=== PATIENT | male | born 1995 | race Caucasian/White ===

== ENCOUNTER 2017-07-07 14:41 | Emergency (ER) | payer MEDICAID ==
[2017-07-07 15:15] VITALS: RESP 16; TEMP 98.2
[2017-07-07 15:31] LABS: % IMMATURE GRANULYOCYTES 0.2 % (0.0-1.1); ABSOLUTE IMMATURE GRANULOCYTES 0.01 10^3/uL (0.00-0.10); ADD DIFF? NO; ADD MORPH? NO; ADD SCAN? NO; ATYPICAL LYMPHOCYTE FLAG 20 (0-99); FRAGMENT RBC FLAG 0 (0-99); HEMATOCRIT 43.9 % (40.0-51.0); HEMOGLOBIN 15.4 g/dL (13.7-17.5); LEFT SHIFT FLG 0 (0-99); LIPEMIA HEMOLYSIS FLAG 90 (0-99); MEAN CELL HEMOGLOBIN 30.6 pg (27.9-34.1); MEAN CELL HEMOGLOBIN CONCENTR. 35.1 g/dL (32.4-36.7); MEAN CELL VOLUME 87.3 fL (81.5-99.8); MEAN PLATELET VOLUME 8.9 fL (8.7-11.7); PLATELET CLUMPS FLAG 0 (0-99); PLATELET COUNT 249 10^3/uL (150-400); RED BLOOD CELL COUNT 5.03 10^6/uL (4.40-6.38); RED CELL DISTRIBUTION WIDTH 11.9 % (11.5-15.2)
[2017-07-07 15:51] LABS: ANION GAP 12 mEq/L (8-16); CALCIUM 9.6 mg/dL (8.5-10.4); CARBON DIOXIDE 24 mEq/l (22-31); CHLORIDE 102 mEq/L (97-110); CREATININE 0.9 mg/dL (0.7-1.3); ETHANOL SERUM < 10 mg/dL (0-10); GLOMERULAR FILTRATION RATE > 60; GLUCOSE 97 mg/dL (70-100); POTASSIUM 4.2 mEq/L (3.5-5.2); SODIUM 138 mEq/L (134-144)
--- NOTE | 2017-07-07 16:59 | EDPHY ---
H & P Time Seen by Provider: 07/07/17 15:17 HPI/ROS: CHIEF COMPLAINT: Psychosis and mental health hold HISTORY OF PRESENT ILLNESS: Patient was brought in on a mental health hold. Apparently his friends called his mother to come to the walk-in clinic but him on a hold. He thinks that the [email or web address] was reading his mind and has both violent thoughts and other paranoid delusions. The patient here just tells me that he "wants to get the fuck out of [place]" because "they will treat us like slaves." REVIEW OF SYSTEMS: Eye: no change in vision ENT: no sore throat Cardiac: no chest pain or syncope Pulmonary: no cough or SOB Abdomen: no vomiting, diarrhea, abdominal pain Musculoskeletal: no back pain Skin: no rash Neuro: no headache Constitutional: no fever : no urinary symptoms A comprehensive 10 point review of systems is otherwise negative aside from elements mentioned in the history of present illness. PAST MEDICAL HISTORY: Negative Social history: Denies drugs or alcohol General Appearance: Alert and conversant, cooperative. Eyes: No scleral icterus. ENT, Mouth: Normal mucous membranes. Respiratory: Normal respiratory effort, breath sounds equal, lungs are clear to auscultation. Cardiovascular: Regular rate and rhythm. Gastrointestinal: Abdomen is soft and non tender. Neurological: Alert and oriented x3. Normally conversant. Face symmetric, normal movement and sensation in all extremities. Skin: Warm and dry, no rashes. Musculoskeletal: No peripheral edema and no joint swelling. Psychiatric: Patient is paranoid as noted in the HPI. He denies suicidal ideation to me. He denies homicidal ideation to me. Emergency Department course/MDM: Arrives on a hold. Screening labs and urine tox ordered. Mental health evaluation. 1700: The patient had a medical screening evaluation performed. There does not appear to be an acute emergent medical or surgical condition which would preclude psychiatric evaluation at this time. Mental health evaluation is requested at at this time. 2143: The patient will be transferred to [facility] for inpatient psychiatric hospital bed not available at this facility, in stable condition; accepting physician is Dr. Hughes. Smoking Status: Never smoked Constitutional: Initial Vital Signs Temperature (C) 36.8 C 07/07/17 14:45 Heart Rate 86 07/07/17 14:45 Respiratory Rate 16 07/07/17 14:45 Blood Pressure 151/90 H 07/07/17 14:45 O2 Sat (%) 98 07/07/17 14:45 O2 Delivery Mode Room Air Allergies/Adverse Reactions: No Known Allergies Allergy (Unverified 07/07/17 15:09) Home Medications: Medication Instructions Recorded NK [No Known Home Meds] 07/07/17 Medical Decision Making Differential Diagnosis: Differential for psychosis and altered mental status include considered including but not limited to metabolic abnormality, drugs, alcohol, primary psychiatric - Data Points Laboratory Results: Laboratory Results 07/07/17 15:00 07/07/17 15:00 07/07/17 07/07/17 07/07/17 16:10 15:00 15:00 WBC 6.48 10^3/uL 10^3/uL (3.80-9.50) RBC 5.03 10^6/uL 10^6/uL (4.40-6.38) Hgb 15.4 g/dL g/dL (13.7-17.5) Hct 43.9 % % (40.0-51.0) MCV 87.3 fL fL (81.5-99.8) MCH 30.6 pg pg (27.9-34.1) MCHC 35.1 g/dL g/dL (32.4-36.7) RDW 11.9 % % (11.5-15.2) Plt Count 249 10^3/uL 10^3/uL (150-400) MPV 8.9 fL fL (8.7-11.7) Neut % (Auto) 60.7 % % (39.3-74.2) Lymph % (Auto) 26.1 % % (15.0-45.0) Garza % (Auto) 8.0 % % (4.5-13.0) Eos % (Auto) 4.2 % % (0.6-7.6) Baso % (Auto) 0.8 % % (0.3-1.7) Nucleat RBC Rel Count 0.0 % % (0.0-0.2) Absolute Neuts (auto) 3.94 10^3/uL 10^3/uL (1.70-6.50) Absolute Lymphs (auto) 1.69 10^3/uL 10^3/uL (1.00-3.00) Absolute Monos (auto) 0.52 10^3/uL 10^3/uL (0.30-0.80) Absolute Eos (auto) 0.27 10^3/uL 10^3/uL (0.03-0.40) Absolute Basos (auto) 0.05 10^3/uL 10^3/uL (0.02-0.10) Absolute Nucleated RBC 0.00 10^3/uL 10^3/uL (0-0.01) Immature Gran % 0.2 % % (0.0-1.1) Immature Gran # 0.01 10^3/uL 10^3/uL (0.00-0.10) Sodium 138 mEq/L mEq/L (134-144) Potassium 4.2 mEq/L mEq/L (3.5-5.2) Chloride 102 mEq/L mEq/L (97-110) Carbon Dioxide 24 mEq/l mEq/l (22-31) Anion Gap 12 mEq/L mEq/L (8-16) BUN 12 mg/dL mg/dL (7-23) Creatinine 0.9 mg/dL mg/dL (0.7-1.3) Estimated GFR > 60 Glucose 97 mg/dL mg/dL (70-100) Calcium 9.6 mg/dL mg/dL (8.5-10.4) Urine Opiates Screen NEGATIVE (NEGATIVE) Urine Barbiturates NEGATIVE (NEGATIVE) Ur Phencyclidine Scrn NEGATIVE (NEGATIVE) Ur Amphetamine Screen NEGATIVE (NEGATIVE) U Benzodiazepines Scrn NEGATIVE (NEGATIVE) Urine Cocaine Screen NEGATIVE (NEGATIVE) U Marijuana (THC) Screen NEGATIVE (NEGATIVE) Ethyl Alcohol < 10 mg/dL mg/dL (0-10) Departure - Departure Disposition: Other Psych, Not [place] Clinical Impression: Acute psychosis Condition: Good Referrals: NONE *PRIMARY CARE P,. [Primary Care Provider] - As per Instructions
[2017-07-07 21:41] VITALS: BP 132/84; PULSE 75; O2SAT 96
== END 2017-07-07 22:23 ==
LOC: EEVIPCON 14:41
DX: F23 Brief psychotic disorder (principal)
CPT/HCPCS: 80305; G0480

== ENCOUNTER 2018-05-24 03:53 | Emergency (ER) | payer OTHER ==
[2018-05-24] MEDS ORDERED: NS 1,000 ML IV ONE ×3 (03:56→07:17)
[2018-05-24] MEDS ORDERED: HALOPERIDOL LACT 5 MG/ML INJ IM ONE (04:00)
--- NOTE | 2018-05-24 04:05 | EDPHY ---
H & P Source: Patient, EMS - Medical/Surgical History Other PMH: DENIES - Social History Smoking Status: Never smoked Time Seen by Provider: 05/24/18 04:02 HPI/ROS: HPI CHIEF COMPLAINT: Possible Tegretol overdose. HISTORY OF PRESENT ILLNESS: Patient is a 23-year-old male, presents emergency room by EMS with police. His roommate called 911 as he is intoxicated with alcohol. EMS reports that he possibly took 20-30 Trileptal. Apparently takes Tegretol for seizures. History and review of systems comes from EMS. The patient arrives to the emergency room and as verbally aggressive with staff cursing at people in yelling at people. He refused to answer any of my questions. This limits his history review of systems. Past Medical History: ?Psychosis. Previous hospitalization for psychosis. Past Surgical History: Unknown surgical history Social History: Alcohol this evening. Unknown other illicit drugs. Family History: Unknown ROS REVIEW OF SYSTEMS: Limited due to patient's mental state. Uncooperative. Intoxication. Exam Constitutional smells of alcohol. Verbally aggressive triage nursing summary reviewed, vital signs reviewed, awake/alert. Eyes normal conjunctivae and sclera, EOMI, PERRLA. HENT normal inspection, atraumatic, moist mucus membranes, no epistaxis, neck supple/ no meningismus, no raccoon eyes. Respiratory clear to auscultation bilaterally, normal breath sounds, no respiratory distress, no wheezing. Cardiovascular tachycardic, regular rhythm, no murmur, no edema, distal pulses normal. Gastrointestinal soft, non-tender, no rebound, no guarding, normal bowel sounds, no distension, no pulsatile mass. Genitourinary no CVA tenderness. Musculoskeletal no midline vertebral tenderness, full range of motion, no calf swelling, no tenderness of extremities, no meningismus, good pulses, neurovascularly intact. Skin pink, warm, & dry, no rash, skin atraumatic. Neurologic awake, alert and oriented x 3, AAOx3, moves all 4 extremities equally, motor intact, sensory intact, CN II-XII intact, normal cerebellar, normal vision, normal speech. Psychiatric verbally aggressive. Heme/Lymph/Immune no lymphadenopathy. Differential Diagnosis: Includes but is not limited to in a particular order drug overdose, alcohol intoxication, suicidal ideation, mood disorder, bipolar disorder, jerson Medical Decision Making: Plan for this patient IV establishment blood draw, IM Haldol 10 mg for acute agitation and verbal aggression. Re-evaluation: 0437: Patient here is acutely agitated and aggressive with staff. Requiring 10 mg IM Haldol. 2 mg IV Ativan. EKG interpretation by me on record in [employer] system. Impression time of EKG 4:29 a.m., sinus tach rate of 103. No prolonged intervals. Nonischemic EKG. Serum alcohol level 218. Acetaminophen and salicylate level noted be negative. Of note he was noted patient has a laceration to the left hand lateral aspect of the 5th digit. V-shaped, 2-3 cm. No deep structures involved. Tendon intact. Neurovascular intact. Unclear how the patient got this laceration. Laceration Repair Procedure: Verbal Consent was obtained, Under sterile conditions, The patient had lidocaine with/out epinephrine used approximately 4ccs to local anesthetize the left 5th digit Laceration. The wound was copiously irrigated with sterile fluid, the wound was explored for foreign bodies there were none visualized, the wound was explored with a sterile glove to the base. There are no deep structures involved, including no arterial injury. FOUR 5.O PROLENE interrupted Sutures were placed in this patient's laceration. He had good close approximation of the wound edges. He Tolerated this well. Patient's 5th digit will be placed in a splint. Patient understands to have sutures removed in 12-14 days. Patient on M1 hold for suicidal ideation and overdose. 0532: Currently at this time patient is sleeping resting comfortably. He received 10 mg IM Haldol 2 mg IV Ativan for acute agitation verbal and physical aggressive behavior. Patient is signed over to Dr. Salazar at 7:00 a.m. Shift change. Of note poison Control was notified about the try laptop overdose. Watch for hypotension and somnolence. 0543: Patient is sleeping. Patient signed over at 7:00 a.m. Shift change to Dr. Salazar. Patient will need mental evaluation. 0707: Patient hemodynamically stable no acute distress. Signed over to Dr. Salazar. Patient is sleeping. Monitor closely. Watch for worsening sedation and hypotension. Patient did receive 10 mg eye and Haldol 2 mg IV Ativan. Also has alcohol. He received these medications due to acute agitation. Patient need to metabolize alcohol, Haldol and Ativan. And then have mental evaluation. 0700AM: Signed over to Dr. Prince. (Alexander Ventura) Constitutional: Initial Vital Signs Temperature (C) 36.4 C 05/24/18 04:00 Heart Rate 139 H 05/24/18 04:00 Respiratory Rate 22 H 05/24/18 04:00 Blood Pressure 155/98 H 05/24/18 04:00 O2 Sat (%) 96 05/24/18 04:00 O2 Delivery Mode Room Air Allergies/Adverse Reactions: No Known Allergies Allergy (Verified 05/24/18 04:42) Home Medications: Medication Instructions Recorded NK [No Known Home Meds] 07/07/17 Medical Decision Making ED Course/Re-evaluation: I took over care of this patient at 3:00 p.m.. This patient is on an M1 hold for suicidal ideation and reported overdose on Trileptal. The patient has been stable through his emergency department course. The patient is still awaiting behavioral health evaluation. The patient has been medically cleared. 11:00 p.m., the patient has been seen and evaluated by Behavioral Health. They are currently searching for placement for inpatient psychiatric management. Patient has remained stable throughout my shift. His care was turned over to Dr. Alexander Ventura at 11:00 p.m.. (Meng Thompson) This patient was turned over to me at change of shift. I just spoke with Dustin the psychiatric dredge operator supervisor and this patient does not feel suicidal or homicidal anymore at this point. He is contract for [employer]. He has agreed to take his medicines. He has agreed to follow up with outpatient services and he knows he can come back at any point. We will discharge him with close follow-up (Sandro Prince) Other Provider: Patient observed in the ED over course of my shift with steady improvement. BP normal and patient ambulatory. He is medically clear from perspective of possible trileptal overdose. Awaiting urine sample so patient can be evaluated. Signed out to Dr. Thompson. (Aubrey Salazar) - Data Points Laboratory Results: Laboratory Results 05/24/18 04:00 05/24/18 04:00 Medications Given: Discontinued Medications Haloperidol Lactate (Haldol Injection) 10 mg IM EDNOW ONE Stop: 05/24/18 04:01 Last Admin: 05/24/18 04:09 Dose: 10 mg Sodium Chloride (Ns) 1,000 mls @ 0 mls/hr IV ONCE ONE PRN Reason: Wide Open Stop: 05/24/18 03:57 Last Admin: 05/24/18 04:09 Dose: 1,000 mls Sodium Chloride (Ns) 1,000 mls @ 0 mls/hr IV EDNOW ONE; Wide Open PRN Reason: Protocol Stop: 05/24/18 05:23 Last Admin: 05/24/18 05:23 Dose: 1,000 mls Sodium Chloride (Ns) 1,000 mls @ 0 mls/hr IV ONCE ONE PRN Reason: Wide Open Stop: 05/24/18 07:18 Last Admin: 05/24/18 07:24 Dose: 1,000 mls Lorazepam (Ativan Injection) 2 mg IVP EDNOW ONE Stop: 05/24/18 04:21 Last Admin: 05/24/18 04:22 Dose: 2 mg Nicotine Polacrilex (Nicorette) 2 mg B PRN PRN PRN Reason: Nicotine Withdrawal Stop: 11/21/18 00:53 Last Admin: 05/25/18 00:56 Dose: 2 mg Departure - Departure Disposition: Home, Routine, Self-Care Clinical Impression: Suicidal ideation Hand laceration Qualifiers: Encounter type: initial encounter Foreign body presence: without foreign body Laterality: left Qualified Code(s): S61.412A - Laceration without foreign body of left hand, initial encounter Suicide attempt by substance overdose Qualifiers: Encounter type: initial encounter Qualified Code(s): T65.92XA - Toxic effect of unspecified substance, intentional self-harm, initial encounter Instructions: Care For Your Stitches (ED), Laceration (ED), Polysubstance Abuse (ED) Additional Instructions: 1. Your sutures in your left hand need to be removed in 12-14 days Referrals: NONE *PRIMARY CARE P,. [Primary Care Provider] - As per Instructions
[2018-05-24 04:11] LABS: PLATELET COUNT 320 10^3/uL (150-400)
[2018-05-24] MEDS ORDERED: LORazepam 2 MG/ML INJ ONE (04:16)
[2018-05-24] MEDS ORDERED: LORazepam 2 MG/ML INJ IVP ONE (04:20)
--- NOTE | 2018-05-24 20:31 | ASMTTLCEVL ---
TLC Evaluation - Basic Information Evaluation Start Date and 05/24/2018 04:30 PM Time Hospital Status Answers: M1 Hold 72-hr M1 Hold Start Date 05/24/2018 03:15 AM and Time Patient statement Notes: "I took too many pills. I drank some tequila, lonny patten and whatever else. I wasn't trying to kill myself or kill anyone else. 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 Said he didn't want to hill himself, but later said he was suicidal." PT was in restraints and combative initially and refused to answer any questions. PT was sleepy and did give limited information to second cutter. PT stated that he is a [employer] at and is majoring in psychology and is getting B's. PT denied that he was attempting suicide and said he drank a lot of alcohol and some point took some old pills but he didn't know why. PT denied taking any current prescribed medication and stated this was from an old prescription. Diagnosis History Notes: PT said he thinks he's Schizophrenic and the pills whe took were for his mood. Prior suicide attempts Notes: PT denied. Prior hospitalizations Notes: PT said he was at [facility] last year, but didn't recall the dates. Treatment Responses Notes: PT said no one can help him, and the hospital was a waste of time. He said he needs a lobotomy. He said he went to [facility] and they told him to come here. When asked for more information he didn't not provide any details or explanation. History of violence Notes: Denied initially and then said he was on probation for having a fight with his ex-girlfrend. Therapist: none Psychiatrist: none Medications (name, dosage, route, freq uency) Notes: None Allergies/Reaction Notes: Denied Sleep Notes: Said he sleeps great. Appetite Notes: Said is appetite is fine. Medical/Surgical history Notes: Denied Substance use history (frequency, intensity, his tory, duration) Notes: PT said he first used alcohol at age 14, and said now he drinks 6-7 shots at time, but didn't say how often when asked. PT denied any other drug use but his tox screen was positive for cocoiane, he said he didn't know how that happened and denied using it.. Family composition Notes: PT reported he his parents are and his mother and step-father live in [place] and he has 1 brother. Need for family Answers: No participation in patient's care Family psychiatric/substance abuse history Notes: PT reported that his father has "severe bipolar disorder and his mom has something, but wouldn't say what that something was. Developmental history Notes: PT said school was hard and he was bullied. Abuse concerns Answers: None Marital status/children Notes: Not , no children. Living situation Notes: Lives with two roommates. Sexual history/orientation Notes: heterosexual Peer support/family strengths Notes: PT reproted he has good friends, and said he didn't think his family cares about him, Education level/history Notes: [employer] in college. Work history Notes: PT said he doesn't work. Notes: Denied Legal Notes: PT said he is on probation for "fight with his girlfriend." Jehovah'S Witness/Spiritual Notes: Denied Leisure Notes: René he doens't like to do anything. Collateral Notes: None, PT did not give his parents name or phone numbers. Patient's strengths Answers: Good Friend to Others (Please select at least TWO strengths): Honest Intelligent TLC Evaluation - Mental Status Exam Appearance: Answers: Unclean Disheveled Eye Contact: Answers: Avoiding Mood: Answers: Irritable Affect: Answers: Hostile Irritable Suspicious Behavior: Answers: Uncooperative Impulsive Resistive to Care Sleeping Speech: Answers: Slowed Insight: Answers: Poor Judgement: Answers: Poor Manic Signs/Symptoms Answers: Distractibility Impulsivity Depression Answers: Diminished Interest Signs/Symptoms: Hopelessness Worthlessness Hallucinations: Answers: None Delusions: Answers: Mind Reading Pt reported to have Answers: Yes suicidal/self-injuring ideation/behavior? Pt exhibits inability to Answers: No care for self/grave disability? Ideation/behavior is Answers: No chronic? Patient has a specific Answers: No plan? Pt has access to means to Answers: No execute the plan? Ideation involves Answers: No serious/lethal intent? Ideation has Answers: No delusional/hallucinatory content? History of Answers: No suicidal/self-injuring ideation, behavior, or threats? History of Answers: No aggressive/assaultive ideation, behavior, or threats? History of serious Answers: No physical harm to self/others while in treatment setting? TLC Evaluation - Suicide/Homicide Risk Suicide Risk Factors: Answers: < 20 or > 40 Years of Age Agitation Alcohol/Heavy Drug Use Impulsivity Intoxication Current Suicidal Answers: No Ideation? Current Suicidal Ideation Answers: Yes in the Past Month? Current Suicidal Answers: No Ideation, Worst Ever? Suicide Internal Answers: Absence of Psychosis Protective Factors: Suicide External Answers: Social Support Protective Factors: Ranking of patient's Answers: Moderate suicidal risk: Ranking of patient's Answers: Low homicidal risk: TLC Evaluation - Wrap-up BDI Total Score: refused BDI Question #2 Score: refused BDI Question #9 Score: refused BSS Total Score: refused AXIS I Diagnosis (include DSM-V and ICD-10 codes), must also be entered in [employer], which is the source of truth. Notes: Unspecified Bipolar and Related Disorder 296.80 (F31.9) Evaluation End Date and 05/24/2018 08:30 PM Time (HH:SARA): Date Signed: 05/24/2018 08:31 PM Electronically Signed By:Joelle Fleming
--- NOTE | 2018-05-24 21:43 | ASMTTCLDSP ---
TLC Discharge Disposition Disposition: Answers: Transfer Discharge Concerns/Recommendations: Notes: In consultation with [facility] ED Meng wilson, and on-call psychiatrist Sergio Mackey both concurred that PT appears to [id number] criteria requiring psychiatric hospitalization as pt appears to be an imminent risk of harm to self due to a mental illness condition. Type of Hold: Answers: M1/72-hour Hold Hold initiated by: Answers: Police Date Signed: 05/24/2018 09:42 PM Electronically Signed By:Joelle Fleming
[2018-05-25] MEDS ORDERED: NICOTINE POLACRILEX 2 MG GUM B PRN (00:54)
--- NOTE | 2018-05-25 06:53 | ASMTLCPROG ---
Notes Note: Notes: Met with pt this morning for re-assessment. Pt stated "I'm not suicidal or homicidal. I can ensure my own safety if allowed to be discharged. I plan to follow up with [facility]. I can take an Uber to get home." In consultation with [facility] ED physicians, Alexander Ventura MD and Sandro Prince MD, both concurred that pt no longer appears to meet 27-65 criteria requiring psychiatric hospitalization as pt no longer appears to be an imminent risk of hamr to self/others/gravely disabled due to a mental illness condition. Dr. Ventura provided verebal order read back vacating M1 Hold at 0645 hrs. Date Signed: 05/25/2018 06:52 AM Electronically Signed By:Roel Norwood
[2018-05-25 06:59] VITALS: BP 137/74
--- NOTE | 2018-05-28 23:58 | CPEKG ---
Test Reason : OPEN Blood Pressure : / mmHG Vent. Rate : 103 BPM Atrial Rate : 103 BPM P-R Int : 136 ms QRS Dur : 106 ms QT Int : 356 ms P-R-T Axes : 026 118 -09 degrees QTc Int : 466 ms Sinus tachycardia Right axis deviation Confirmed by Alexander Ventura ([id number]) on 05/28/2018 11:57:46 PM Referred By: Confirmed By:Alexander Ventura
== END 2018-05-25 06:57 | disposition home or self-care (01) ==
LOC: EDUNIT#
PROC: 0HQGXZZ Repair Left Hand Skin, External Approach (ICD-10-PCS; principal; 2018-05-24)
DX: R45.851 Suicidal ideations (principal); T42.1X2A Poisoning by iminostilbenes, intentional self-harm, initial encounter; S61.412A Laceration without foreign body of left hand, initial encounter; E86.9 Volume depletion, unspecified; F10.920 Alcohol use, unspecified with intoxication, uncomplicated; Y90.7 Blood alcohol level of 200-239 mg/100 ml
CPT/HCPCS: 80305; 96374; G0480; J1630; J2060; L3925